=== PATIENT | female | born 1970 | race Caucasian/White ===

== ENCOUNTER → 2019-01-31 | Outpatient (REF) | payer MEDICARE, MEDICAID | LOC: M LAB LCGH 12:33 | PROVIDERS: ATTEND Physician Assistant | DX: Z12.4 Encounter for screening for malignant neoplasm of cervix (principal) ==

== ENCOUNTER → 2023-11-12 | Outpatient (REF) | payer MEDICARE, MEDICAID | LOC: M LAB REF 11:54 | PROVIDERS: ATTEND Plastic Surgery Surgery of the Hand | DX: L72.0 Epidermal cyst (principal) ==

== ENCOUNTER → 2025-03-01 | Outpatient (REF) | payer MEDICARE | LOC: M LAB REF 17:49 | PROVIDERS: ATTEND Plastic Surgery Surgery of the Hand | DX: L72.0 Epidermal cyst (principal) ==